=== PATIENT | female | born 1965 | race Caucasian/White ===

== ENCOUNTER 2019-06-05 21:10 | Observation (INO) | payer MEDICAID, SELFPAY ==
[2019-06-05 21:10] VITALS: BP 123/81; PULSE 91; RESP 18; TEMP 36.7; O2SAT 93
[2019-06-05 21:45] VITALS: BMI 30.4
[2019-06-05] MEDS: ondansetron 2 mg/ML SDV 2 mL 4 MG IVP (22:08)
--- NOTE | 2019-06-05 22:14 | PM.HP ---
Providers/Chief Complaint Admitting Physician: Mik Trevino MD Primary Care Provider: Mikie Neely MD Chief Complaint: flu a pos pneumonia History of Present Illness Jina Tyler is a 54 year old female with history of IBS, dyslipidemia presented with chief complaint of 3-day history of body aches and myalgias. She went to [facility] where she was diagnosed with influenza A, she was hypoxic 89 to 90% and then did well on 2 L nasal cannula. She was transferred to our facility on request of the family. Patient's chart was reviewed which showed chest x-ray which was unremarkable no CBC BMP was noted. On arrival patient was saturating well on room air, afebrile, she was complaining of extreme lethargy and myalgia. 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 She has not spiked any fever, she is denying any dysuria, traveling outside [facility], she does not get influenza vaccination. No sputum production, she is a non-smoker, nonalcoholic. Review of Systems Const: Reports: chills, body aches, fatigue and malaise; Denies: fever, change in appetite or diaphoresis Eyes: Reports: increased production of tears; Denies: change in vision ENMT: Denies: throat pain or painful swallowing Card: Denies: chest pain or edema Resp: Reports: non-productive cough; Denies: shortness of breath, productive cough, wheezing, stridor or change in phlegm color GI: Denies: abdominal pain, nausea, vomiting or coffee grounds in vomit : Denies: flank pain, difficulty urinating, urinary frequency or urinary urgency Musc: Denies: neck pain, back pain or extremity swelling Skin/Breast: Denies: rash, itching or skin pain Neuro: Reports: headache, weakness in extremities and difficulty walking; Denies: numbness in extremities, changes in sensation, lack of coordination, frequent falls, dizziness, confusion, behavioral changes, slurred speech or seizure-like activity Psych: Denies: anxiety or depression Endo: Denies: excessive urination Sacha/Lymph: Denies: easy bruising All/Imm: Denies: hives Medications/Allergies Home Medications Medication Instructions Recorded Confirmed Last Taken Type Prilosec 06/05/19 Unknown History Allergies Allergy/AdvReac Type Severity Reaction Status Date / Time codeine Allergy ADR-Nausea Verified 06/05/19 21:50 Penicillins Allergy Unknown Verified 06/05/19 21:50 PFSH Acute PFSH: Medical History (Updated 06/05/19 @ 22:19 by Erika Tran MD) Dyslipidemia IBS (irritable colon syndrome) Surgical History (Updated 06/05/19 @ 22:17 by Erika Tran MD) H/O: hysterectomy Family History (Updated 06/05/19 @ 22:17 by Erika Tran MD) Denies family history of CAD (coronary artery disease) Clotting disorder Chronic kidney disease (CKD) Cancer Social History (Updated 06/05/19 @ 22:18 by Erika Tran MD) Smoking and tobacco status: never smoked Alcohol intake: never Substance/Drug Use: never Household members: family Housing: House Marital status: Vitals/I&O/Wt 06/05/19 06/05/19 06/05/19 06:59 14:59 22:59 Intake Total 60 / 60 Balance 60 / 60 Weight last 48 hrs Weight 80.513 kg Physical Exam Narrative: EXAM NARRATIVE: Patient seems to be in distress because of myalgia He seems very lethargic and dehydrated S1, S2 She is afebrile, saturating well on room air no active respiratory distress Lung auscultation is not revealing any adventitious sounds bilateral good adequate breath sounds Abdomen soft nontender nondistended bowel sounds present Neurologically nonfocal exam Skin does not show any skin ischemia gangrene ulcer Appropriate mood and affect A&P Assessment and plan (1) Myalgia: Status: Acute Code(s): M79.10 - Myalgia, unspecified site (2) Influenza A: Status: Acute Code(s): J10.1 - Influenza due to other identified influenza virus with other respiratory manifestations Additional A&P Information Myalgias secondary to influenza A Currently hemodynamically stable, received 1 L D5 half-normal saline fluid Chest x-ray did not reveal any signs of post viral bacterial pneumonia Start Tamiflu Patient is not septic We will check CBC BMP and lactic acid and CPK Patient is not hypoxic, closely monitor for any signs of respiratory distress Family counseled on hand hygiene, washing hands, using facemask, importance of flu vaccination and avoidance of bringing children to the hospital Droplet precautions We had lengthy discussion regarding prevention, treatment, post viral complications and vigilance of influenza A, all questions were answered to the satisfaction of the family IBS: Patient is stating that she takes a powder which she is not aware of which helps with her IBS symptoms Full code Regular diet Zofran for nausea Attestations Medical Necessity Statement*: Anticipating discharge in less than 48 hours if her symptoms are improved Time Spent in Patient Care: 40 Coding Level of Care Code Acute Electrical Technology Instructor for Laurie Fwlissette Diagnoses Myalgia M79.10 Influenza A J10.1
[2019-06-05 22:46] LABS: Lactic Acid level (Lactate) 1.6 mmol/L (0.5-2.2)
[2019-06-06 00:31] VITALS: BP 125/73; PULSE 83; RESP 18; TEMP 36.8; O2SAT 92
[2019-06-06 04:03] VITALS: BP 125/82; PULSE 79; RESP 15; TEMP 37.4; O2SAT 91
[2019-06-06 05:47] LABS: Basophils % 0.3 %; Eosinophils % 0.1 %; Hematocrit 38.3 % (37.0-47.0); Hemoglobin 12.6 g/dL (11.5-15.3); Lymphocytes # 1.8 10^3/uL (0.8-4.8); Lymphocytes % 25.5 %; Mean Corpuscular HGB Conc 32.9 g/dL (30.0-36.0); Mean Corpuscular Volume 85.1 fL (81-99); Mean Platelet Volume 10.4 fL (7.4-10.4); Monocytes % 13.7 %; Neutrophils # 4.2 10^3/uL (1.8-7.7); Neutrophils % 60.3 %; Nucleated Red Blood Cells % 0 %; Platelet Count 239 10^3/cmm (130-400); Red Cell Distribution Width 13.2 % (12.1-15.1)
[2019-06-06 06:18] LABS: Anion Gap 18.8 (5-19); Blood Urea Nitrogen 9 mg/dL (6-20); Calcium 9.6 mg/dL (8.5-10.5); Carbon Dioxide 24 mmol/L (22-29); Chloride 100 mmol/L (98-107); Creatine Phosphokinase 41 U/L (26-192); Glomerular Filtration Rate 103.4 mL/min (90-130); Glucose 158 mg/dL (65-115); Osmolality Calculated 287 mOsm/kg (285-295); Potassium 3.8 mmol/L (3.5-5.1); Sodium 139 mmol/L (136-145)
[2019-06-06 07:49] VITALS: BP 140/85; PULSE 81; RESP 18; TEMP 37.1; O2SAT 94
[2019-06-06] MEDS: oseltamivir phosphate 75 mg Capsule PO (09:07)
[2019-06-06] MEDS: enoxaparin 40 mg/0.4 mL Syringe SUBCUT (09:07)
[2019-06-06] MEDS: ondansetron 2 mg/ML SDV 2 mL 4 MG IVP (09:07)
--- NOTE | 2019-06-06 11:04 | P.DS_ITS ---
Discharge Providers Date of Admission: 06/05/19 21:10 Date of Discharge: June 06, 2019 Attending Provider at Admission: Mik Trevino MD Attending Provider at Discharge: Mik Trevino MD Primary Care Provider: Mikie Neely MD Diagnoses at Discharge Discharge Diagnosis (1) Myalgia: Status: Acute (2) Influenza A: Status: Acute Reason for Visit Reason for Visit: Reason For Visit: flu a pos pneumonia Hospital Course Discharge Summary: tammi Tyler is a 54 year old female with history of IBS, dyslipidemia presented with chief complaint of 3-day history of body aches and myalgias. She went to [facility] where she was diagnosed with influenza A, she was hypoxic 89 to 90% and then did well on 2 L nasal cannula. She was transferred to our facility on request of the family. Patient's chart was reviewed which showed chest x-ray which was unremarkable no CBC BMP was noted. On arrival patient was saturating well on room air, afebrile, she was complaining of extreme lethargy and myalgia. 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 She has not spiked any fever, she is denying any dysuria, traveling outside [place], she does not get influenza vaccination. No sputum production, she is a non-smoker, nonalcoholic. She was on admitted under observation for influenza A. Patient did not have any episode of desaturation while on resting or on ambulation. Patient was started on Tamiflu which he tolerated well. Patient is complaining of mild nausea and decreased appetite for which she has been told to take bland diet for next 4 to 5 days and then advance as required. Patient is instructed to take Tamiflu for overall 5 days and finish a course along with a course of levofloxacin which is been given as prevention for from superimposed pneumonia. Patient is advised to wear a mask, hand hygiene. Patient is to remain off work to the time she completes her course of antiviral medication. Patient is been discharged hemodynamically stable condition saturating more than 94% on room air. Physical Exam Narrative: EXAM NARRATIVE: General: No acute distress, AO x3 HEENT: PERRLA, pupils bilaterally equal and reactive Chest: Normal vesicular breath sounds, no added sounds, equal good air entry bilaterally CVS: S1-S2 regular, no murmurs, no tachycardia, no gallops, no rubs Abdomen: Soft, nontender, no organomegaly, bowel sounds present Neuro: No focal deficits, no facial deformity, AO x3, power 5/5 in all limbs Discharge Data Data Completed and Pending: Labs from last 24 hours 06/06/19 06/06/19 06/06/19 05:03 05:03 05:03 WBC 7.0 RBC 4.50 Hgb 12.6 Hct 38.3 MCV 85.1 MCH 28.0 MCHC 32.9 RDW 13.2 Plt Count 239 MPV 10.4 Neut % (Auto) 60.3 Lymph % (Auto) 25.5 [place] % (Auto) 13.7 Eos % (Auto) 0.1 Baso % (Auto) 0.3 Neut # (Auto) 4.2 Lymph # (Auto) 1.8 [place] # (Auto) 1.0 H Eos # (Auto) 0.0 Baso # (Auto) 0.0 Nucleated RBC % (a uto) 0 Nucleated RBCs # 0.0 Sodium 139 Potassium 3.8 Chloride 100 Carbon Dioxide 24 Anion Gap 18.8 BUN 9 Creatinine 0.6 GFR Calculation 103.4 Glucose 158 H Calculated Osmolal ity 287 Lactic Acid (Sepsi s) Calcium 9.6 Creatine Kinase 41 Procalcitonin 06/05/19 06/05/19 22:25 22:25 WBC RBC Hgb Hct MCV MCH MCHC RDW Plt Count MPV Neut % (Auto) Lymph % (Auto) [place] % (Auto) Eos % (Auto) Baso % (Auto) Neut # (Auto) Lymph # (Auto) [place] # (Auto) Eos # (Auto) Baso # (Auto) Nucleated RBC % (a uto) Nucleated RBCs # Sodium Potassium Chloride Carbon Dioxide Anion Gap BUN Creatinine GFR Calculation Glucose Calculated Osmolal ity Lactic Acid (Sepsi s) 1.6 Calcium Creatine Kinase Procalcitonin 0.10 Vitals: Last Vital Signs Temp 98.8 F 06/06/19 07:49 Pulse 81 06/06/19 07:49 Resp 18 06/06/19 07:49 BP 140/85 06/06/19 07:49 Pulse Ox 94 06/06/19 07:49 Discharge Plan Discharge Patient Disposition: Home, Self-Care Condition: Stable Prescriptions: New oseltamivir 75 mg Capsule 75 mg PO BID 4 Days Qty: 8 RF: 0 levofloxacin 500 mg tablet 500 mg PO DAILY 5 Days RF: 0 Continued Prilosec 20 mg tablet 20 mg PO RF: 0 Discharge Orders: Discharge Order (Routine); Ordered 06/06/19 Ordered By: Mik Trevino Referrals: Elder Graham MD [Family Provider] - 2 weeks Discharge Diet: Advance as tolerated Discharge Activity: Resume usual activity Activity Restrictions/Additional Instructions: BLAND diet for 4-5 days. Advance as tolerated. May return to work after completion of antiviral treatment. Discharge Attestations Time Spent in Discharge Care*: greater than 30 min Specific Discharge Activities: Specific discharge activities: educating patient, educating and/or supporting family/caregiver and evaluating patient/reviewing data Status at Discharge: Cognitive status at discharge: cognitively intact , Behavioral status at discharge: cooperative , Functional status at discharge: independent ambulation Overall status at discharge: patient is back to baseline Quality Metrics Clinical Quality Measures During this hospital stay, did patient experience: None Coding Level of Care Code Acute Chemical Equipment Controller for Laurie Mckeon Diagnoses Myalgia M79.10 Influenza A J10.1
[2019-06-06 11:17] VITALS: BP 128/84; PULSE 76; RESP 18; TEMP 36.6; O2SAT 93
[2019-06-06 11:43] VITALS: BP 128/84; PULSE 76; RESP 18; TEMP 36.6; O2SAT 93
--- NOTE | 2019-06-06 12:14 | PC.CHAP ---
Pastoral Care Encounter/Spiritual Assessment Type of Contact [] Declined jumpbasting collar baster visit [] Patient/Family/Request visit [] Outpatient visit [] Follow-up visit [] Physician referral [] Code/Alert [x] Routine visit [] Staff referral [] Actively dying [] Patient sleeping [] Family support [] [] Out of room [] Palliative care [] [] Receiving care in room [] Pre-surgical visit [] Trauma [] Long length of stay [] ICU visit [] Other: Relational/Emotional Strength [x] Patient feels connected with others/family/visitors/staff [] Distress [] Loneliness/isolation [] Abandonment Spirituality of Patient [] Person of Amanda [] Attends Scientologist of their Amanda [x] Believes in Prayer [] Reads Bible or Jainism materials [] There are Spiritual issues to be addressed Banquet Pilot Interventions [x] Prayer [x] Active listening [x] Non-anxious presence [x] Spiritual/emotional support [] Crisis/trauma care [x] Spiritual counseling [] Bereavement support [] Provided bereavement packet [] Provided Bible/devotional materials [] Provided toy/stuffed animal, coloring book to patient or family member [] Provided Communion [] Anointing/[place] [] Salvation [] Completed spiritual assessment [] Other: Impact on Illness or Injury [] Angry [] Fearful [] Anxious [] Often cries [] Exhaustion [] Unable to work [] Unable to attend catholic [] Unable to walk/stand [] Unable to read [] Unable to drive [] Unable to eat/drink [] Unable to sleep [] Unable to be with family [] Patient intubated [x] Other: n/a Summary Time spent with patient 3 minutes x
== END 2019-06-06 12:35 | disposition home or self-care (01) ==
PROVIDERS: Internal Medicine; Admitting Provider Student in an Organized Health Care Education/Training Program; Family Provider Family Medicine; PCP Family Medicine; Visit Provider Student in an Organized Health Care Education/Training Program
DX: J10.1 Influenza due to other identified influenza virus with other respiratory manifestations (principal); M79.10 Myalgia, unspecified site; E78.5 Hyperlipidemia, unspecified
CPT/HCPCS: 12345; 36415; 80048; 82550; 83605; 84145; 85025; 96372; 96375; G0378; G0379; J1650; J2405

== ENCOUNTER 2022-01-07 21:07 | Emergency (ER) | payer OTHER, SELFPAY ==
[2022-01-07 21:29] VITALS: BP 166/86; PULSE 73; RESP 18; TEMP 36.7; O2SAT 99; BMI 29.8
--- NOTE | 2022-01-07 22:03 | CTR_ITS ---
PROCEDURE INFORMATION: Exam: CT Abdomen And Pelvis Without Contrast Exam date and time: 01/07/2022 10:13 PM Age: 56 years old Clinical indication: Abdominal pain; Flank; Right; Prior surgery; Surgery date: 6+ months; Surgery type: Appy, jaqueline, hysterectomy; Additional info: Abd pain TECHNIQUE: Imaging protocol: Computed tomography of the abdomen and pelvis without contrast. Radiation optimization: All CT scans at this facility use at least one of these dose optimization techniques: automated exposure control; mA and/or kV adjustment per patient size (includes targeted exams where dose is matched to clinical indication); or iterative reconstruction. COMPARISON: No relevant prior studies available. RADIATION DOSE METRICS: Total DLP (mGy-cm): 654.83 FINDINGS: Lungs: Lung bases are clear. Liver: The liver is normal. Gallbladder and bile ducts: The gallbladder is absent. There is no intrahepatic or extrahepatic bile duct dilation. Pancreas: The pancreas is unremarkable. Spleen: Splenic size is normal. There are scattered calcifications consistent with healed granulomas. Adrenal glands: The adrenal glands are unremarkable. Kidneys and ureters: The kidneys are unremarkable. No hydronephrosis or stones. No ureteral dilation. Stomach and bowel: The stomach is decompressed, preventing meaningful evaluation of wall thickness. The small bowel is nondilated. The colon is unremarkable. Appendix: The appendix is not visible. Intraperitoneal space: There is no free air or significant intraperitoneal free fluid. Vasculature: There is mild aortic atherosclerotic disease. Lymph nodes: There is no lymphadenopathy in the retroperitoneum, mesentery, pelvis or inguinal regions. Urinary bladder: The urinary bladder is unremarkable. Reproductive: The uterus is absent. There is no adnexal mass or large cyst. 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 There is mild degenerative disease in the lumbar spine. The pelvis and hips are unremarkable. Soft tissues: The abdominal wall is intact. CT/CT kidney stone [id number] IMPRESSION: 1. No acute findings. 2. Incidental findings above.
[2022-01-07 22:11] VITALS: RESP 17; O2SAT 97
--- NOTE | 2022-01-07 22:14 | PC.NURSE ---
patient taken to ct at this time.
--- NOTE | 2022-01-07 22:16 | ED_ITS ---
HPI - Abdominal Pain General: Chief Complaint: Abdominal Pain Stated Complaint: Rt Hip Pain\Vaginal Pain\N\ Time Seen by Provider: 01/07/22 22:00 Source: patient Mode of arrival: ambulatory Limitations: no limitations History of Present Illness: 56-year-old female who states has been having some right flank pain along with right lower abdominal pain over the last 4 to 5 days states ibuprofen and moxifloxacin does seem to help her pain. States today her pain got very sharp in her flank and radiates to her groin denies any difficulty urinating denies any vomiting or fever states pain seems to be worse with walking improved with rest. She rates her pain a 4 out of 10 currently Associated Symptoms: Denies chills and fever(s) Review of Systems Const: Denies: fever(s), chills, body aches or change in appetite Eyes: Denies: blurry vision or eye discomfort ENMT: Denies: throat pain or dental pain Card: Denies: chest pain Resp: Denies: dyspnea GI: Reports: abdominal pain : Reports: flank pain Musc: Denies: neck pain or back pain Skin/Breast: Denies: rash Neuro: Denies: headache(s) Psych: Denies: depression Sacha/Lymph: Denies: easy bruising All/Imm: Denies: urticaria PFSH ED PFSH: Medical History (Updated 01/07/22 @ 23:34 by Ritchie Heller MD) Dyslipidemia IBS (irritable colon syndrome) Surgical History H/O: hysterectomy Family History Denies family history of CAD (coronary artery disease) Clotting disorder Chronic kidney disease (CKD) Cancer Social History Smoking and tobacco status: never smoked Alcohol intake: never Household members: family Housing: House Marital status: Physical Exam Const: COMMON NORMALS: no acute distress, patient oriented x3 and healthy appearing HENMT: COMMON NORMALS: normocephalic and atraumatic HEAD & SCALP: normoc ephalic and atraumatic Eye: COMMON NORMALS: Equal, round and reactive pupils present and EOMs intact bilaterally PUPIL: Yes Equal, round and reactive pupils present Neck/C-Spine: COMMON NORMALS: full ROM and supple Chest: COMMONS NORMALS: normal inspection of the chest and normal palpation of entire chest wall Resp: COMMON NORMALS: normal respiratory effort, No retractions, No use of accessory muscles and clear to auscultation bilaterally AUSCULTATION: clear to auscultation bilaterally Cardio: COMMON NORMALS: regular rate, regular rhythm and No murmurs present (Cardio) RATE: regular rate RHYTHM: regular rhythm GI: COMMON NORMALS: Normal to inspection, nondistended, normoactive bowel sounds present, Soft to palpation, non-tender and no masses PALPATION: Yes Soft to palpation Extremity: COMMON NORMALS: normal to inspection and full ROM Neuro: COMMON NORMALS: patient oriented x3, moves all extremities and no focal motor deficits Psych: COMMON NORMALS: mental status grossly normal, Normal thought process present and cooperative THOUGHT PROCESS: Normal thought process present Skin: COMMON NORMALS: no rashes or lesions noted and no wounds GENERAL SKIN EXAM: no rashes or lesions noted Course Vital Signs: Vital signs: Vital Signs Temperature 98.1 F 01/07/22 21:29 Pulse Rate 79 01/07/22 23:00 Respiratory Rate 18 01/07/22 23:46 Blood Pressure 130/80 01/07/22 23:35 Pulse Oximetry 100 01/07/22 23:46 Oxygen Delivery Me thod 01/07/22 23:35 MDM - Abdominal Pain Medical Decision Making Patient presents here with abdominal pain and back pain is likely muscular in nature CT here is normal blood works normal no signs of pyelonephritis or UTI she stable for discharge follow-up with her PCP and return if worsening. Lab Data : 01/07/22 22:11 01/07/22 22:11 Labs/Radiology: Radiology Impressions Abdomen/Pelvis CT 01/07/22 22:03 IMPRESSION: 1. No acute findings. 2. Incidental findings above. Laboratory Results WBC 11.8 10^3/uL (4.0-10.0) H 01/07/22 22:11 RBC 4.19 10^6/uL (4.1-5.3) 01/07/22 22:11 Hgb 12.1 g/dL (11.5-15.3) 01/07/22 22:11 Hct 36.0 % (37.0-47.0) L 01/07/22 22:11 MCV 85.9 fl (81-99) 01/07/22 22:11 MCH 28.9 pg (28.0-34.0) 01/07/22 22:11 MCHC 33.6 g/dL (30.0-36.0) 01/07/22 22:11 RDW 13.2 % (12.1-15.1) 01/07/22 22:11 Plt Count 311 10^3/cmm (130-400) 01/07/22 22:11 MPV 10.8 fL (7.4-10.4) H 01/07/22 22:11 Neut % (Auto) 71.0 % 01/07/22 22:11 Lymph % (Auto) 19.5 % 01/07/22 22:11 [place] % (Auto) 7.1 % 01/07/22 22:11 Eos % (Auto) 1.6 % 01/07/22 22:11 Baso % (Auto) 0.5 % 01/07/22 22:11 Neut # (Auto) 8.41 10^3/uL (1.8-7.7) H 01/07/22 22:11 Lymph # (Auto) 2.3 10^3/uL (0.8-4.8) 01/07/22 22:11 [place] # (Auto) 0.8 10^3/uL (0.2-0.9) 01/07/22 22:11 Eos # (Auto) 0.2 10^3/uL (0.0-0.8) 01/07/22 22:11 Baso # (Auto) 0.1 10^3/uL (0.0-0.1) 01/07/22 22:11 Nucleated RBC % (auto) 0 % 01/07/22 22:11 Nucleated RBCs # 0.0 /100WBC 01/07/22 22:11 Sodium 141 mmol/L (136-145) 01/07/22 22:11 Potassium 4.1 mmol/L (3.5-5.1) 01/07/22 22:11 Chloride 106 mmol/L (98-107) 01/07/22 22:11 Carbon Dioxide 23 mmol/L (22-29) 01/07/22 22:11 Anion Gap 16.1 (5-19) 01/07/22 22:11 BUN 15 mg/dL (6-20) 01/07/22 22:11 Creatinine 0.6 mg/dL (0.5-0.9) 01/07/22 22:11 GFR Calculation 102.7 mL/min (90-130) 01/07/22 22:11 Glucose 167 mg/dL (65-115) H 01/07/22 22:11 Calculated Osmolality 297 mOsm/kg (285-295) H 01/07/22 22:11 Calcium 9.5 mg/dL (8.5-10.5) 01/07/22 22:11 Total Bilirubin 0.2 mg/dL (0.15-1.2) 01/07/22 22:11 AST 19 U/L (0-32) 01/07/22 22:11 ALT 20 U/L (0-33) 01/07/22 22:11 Alkaline Phosphatase 141 U/L (35-105) H 01/07/22 22:11 Total Protein 7.2 g/dL (6.6-8.7) 01/07/22 22:11 Albumin 4.7 g/dL (3.5-5.2) 01/07/22 22:11 Globulin 2.5 g/dL (1.3-4.6) 01/07/22 22:11 Lipase 37 U/L (13-60) 01/07/22 22:11 Urine Color Yellow (Yellow) 01/07/22 22:11 Urine Appearance Clear (CLEAR) 01/07/22 22:11 Urine pH 5 (5-7) 01/07/22 22:11 Ur Specific [place] 1.025 (1.005-1.030) 01/07/22 22:11 Urine Protein Neg (Negative) 01/07/22 22:11 Urine Glucose (UA) Norm (Normal) 01/07/22 22:11 Urine Ketones Negative (Negative) 01/07/22 22:11 Urine Blood Neg (Negative) 01/07/22 22:11 Urine Nitrate Negative (Negative) 01/07/22 22:11 Urine Bilirubin Neg (Negative) 01/07/22 22:11 Urine Urobilinogen Neg mg/dL (Negative) 01/07/22 22:11 Ur Leukocyte Esterase 1+ (Negative) H 01/07/22 22:11 Urine RBC 0-4 /hpf (0-2) H 01/07/22 22:11 Urine WBC 5-10 /hpf (0-5) H 01/07/22 22:11 Ur Squamous Epith Cells 0-4 /hpf (0-5) H 01/07/22 22:11 Amorphous Sediment Not Reportable 01/07/22 22:11 Urine Bacteria Trace /hpf (NONE) 01/07/22 22:11 Urine Mucus 1+ /hpf 01/07/22 22:11 Discharge Plan Discharge Patient Disposition: Home Clinical Impression: Low back pain Qualifiers: Chronicity: acute Back pain laterality: left Sciatica presence: without sciatica Qualified Code(s): M54.50 - Low back pain, unspecified Condition: Stable Prescriptions: New hydrocodone-acetaminophen 5-325 mg tablet 1 tab PO Q6H PRN (Reason: pain) Qty: 14 0RF No Action Prilosec 20 mg tablet 20 mg PO Discharge Orders: Discharge ED (Routine); Ordered 01/07/22 Ordered By: Ritchie Heller Referrals: Marcia Escalera APN [Primary Care Provider] - 1-3 days Discharge Diet: Advance as tolerated Discharge Activity: Resume usual activity Patient Instructions: Flank Pain (ED), Pain Management Stand Alone Forms: Work/School Release Coding Level of Care Code ED Music Cataloguer for Laurie Fwd Exam Comprehensive
[2022-01-07 22:18] LABS: Basophils # 0.1 10^3/uL (0.0-0.1); Basophils % 0.5 %; Eosinophils # 0.2 10^3/uL (0.0-0.8); Eosinophils % 1.6 %; Hemoglobin 12.1 g/dL (11.5-15.3); Lymphocytes # 2.3 10^3/uL (0.8-4.8); Lymphocytes % 19.5 %; Mean Corpuscular HGB Conc 33.6 g/dL (30.0-36.0); Mean Corpuscular Hemoglobin 28.9 pg (28.0-34.0); Mean Corpuscular Volume 85.9 fl (81-99); Mean Platelet Volume 10.8 fL (7.4-10.4); Monocytes # 0.8 10^3/uL (0.2-0.9); Monocytes % 7.1 %; Neutrophils # 8.41 10^3/uL (1.8-7.7); Nucleated Red Blood Cells % 0 %; Platelet Count 311 10^3/cmm (130-400); Red Blood Count 4.19 10^6/uL (4.1-5.3); Red Cell Distribution Width 13.2 % (12.1-15.1); White Blood Count 11.8 10^3/uL (4.0-10.0)
[2022-01-07 22:29] LABS: Add Urine Microscopic? YES; Bilirubin Urine Neg (Negative); Blood Urine Neg (Negative); Glucose Urine UA Norm (Normal); Ketones Urine Negative (Negative); Leukocyte Esterase Urine 1+ (Negative); Nitrate Urine Negative (Negative); Protein Urine Neg (Negative); Specific Gravity, Urine 1.025 (1.005-1.030); Urine Appearance Clear (CLEAR); Urine Color Yellow (Yellow); Urobilinogen Urine Neg (Negative); pH Urine 5 (5-7)
[2022-01-07 22:30] LABS: Add Urine Culture? No; Bacteria Urine TRACE /hpf; Mucus Urine 1+ /hpf; RBC Urine 0-4 /hpf (0-2); Squamous Epithelial Cell Urine 0-4 /hpf (0-5)
[2022-01-07] MEDS: ondansetron 2 mg/ML SDV 2 mL 4 MG IVP (22:30)
[2022-01-07] MEDS: HYDROmorphone 1 mg/mL INJ 1 mL 0.5 MG IVP (22:30)
[2022-01-07 22:33] LABS: Alanine Aminotransferase 20 U/L (0-33); Albumin Level 4.7 g/dL (3.5-5.2); Alkaline Phosphatase 141 U/L (35-105); Anion Gap 16.1 (5-19); Aspartate Amino Transferase 19 U/L (0-32); Blood Urea Nitrogen 15 mg/dL (6-20); Calcium 9.5 mg/dL (8.5-10.5); Carbon Dioxide 23 mmol/L (22-29); Chloride 106 mmol/L (98-107); Globulin 2.5 g/dL (1.3-4.6); Glomerular Filtration Rate 102.7 mL/min (90-130); Glucose 167 mg/dL (65-115); Lipase 37 U/L (13-60); Osmolality Calculated 297 mOsm/kg (285-295); Potassium 4.1 mmol/L (3.5-5.1); Sodium 141 mmol/L (136-145); Total Bilirubin 0.2 mg/dL (0.15-1.2); Total Protein 7.2 g/dL (6.6-8.7)
[2022-01-07 23:00] VITALS: BP 148/71; PULSE 79; RESP 19; O2SAT 97
[2022-01-07 23:35] VITALS: BP 130/80; RESP 17; O2SAT 95
[2022-01-07 23:46] VITALS: RESP 18; O2SAT 100
== END 2022-01-07 23:47 | disposition home or self-care (01) ==
PROVIDERS: Emergency Provider Emergency Medicine; PCP Nurse Practitioner Family
DX: M54.50 Low back pain, unspecified (principal); E78.5 Hyperlipidemia, unspecified
CPT/HCPCS: 74176; 80053; 81001; 83690; 85025; 96374; 96375; 99285; J1170; J2405

== ENCOUNTER 2022-11-18 13:10 | Emergency (ER) | payer OTHER, SELFPAY ==
[2022-11-18 13:17] VITALS: BP 155/87; PULSE 76; RESP 15; TEMP 36.8; O2SAT 98; BMI 30.9
--- NOTE | 2022-11-18 13:28 | XR_ITS ---
WS: [id number] Left foot, 3 views, 11/18/2022 Clinical Data: crush injury Comparison: None. Findings: There is a nondisplaced fracture of the base of the third toe proximal phalanx. No other fractures ar e seen. The joint spaces are normal. The soft tissues are unremarkable. There is a plantar spur. Impression: Fracture at the base of left third toe proximal phalanx.
[2022-11-18 13:49] VITALS: PULSE 72; RESP 17; O2SAT 98
--- NOTE | 2022-11-19 00:36 | W.ED.EXTPRO ---
HPI - Extremity Problem General: Chief complaint: Extremity Injury, Lower Stated complaint: left foot injury Time Seen by Provider: 11/18/22 13:19 Source: patient Mode of arrival: wheelchair Limitations: no limitations History of Present Illness: Patient presents emergency department today for evaluation treatment of left foot pain. 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 She has had pain, swelling, and bruising to the distal portion of her foot since that time. Review of Systems General: Reports: 10 or more systems reviewed and unremarkable except in HPI and below PFSH ED PFSH: Medical History Dyslipidemia IBS (irritable colon syndrome) Surgical History H/O: hysterectomy Family History Denies family history of CAD (coronary artery disease) Clotting disorder Chronic kidney disease (CKD) Cancer Social History Smoking and tobacco status: never smoked Alcohol intake: never Substance/Drug Use: never Household members: family Housing: House Marital status: Physical Exam Const: COMMON NORMALS: no acute distress, patient oriented x3 and alert HENMT: COMMON NORMALS: normocephalic, atraumatic and hearing grossly normal bilaterally HEAD & SCALP: normocephalic and atraumatic Eye: COMMON NORMALS: Equal, round and reactive pupils present, EOMs intact bilaterally and conjunctivae normal CONJUNCTIVA: Yes conjunctivae normal PUPIL: Yes Equal, round and reactive pupils present Neck/C-Spine: COMMON NORMALS: full ROM and no JVD Lymph: LYMPHATIC: no lymphadenopathy noted Resp: COMMON NORMALS: normal respiratory effort, No retractions and No use of accessory muscles Cardio: COMMON NORMALS: no JVD and regular rate RATE: regular rate Extremity: NARRATIVE EXTREMITY EXAM: Patient is ambulatory and weightbearing. She is tender to the MTP joints of the left foot as well as tender to the distal midfoot on the left side. Patient has pain with flexion extension of the toes on the left foot-especially around the third toe. Obvious swelling and bruising to the top distal portion of the foot. No open wounds or bleeding. Neuro: COMMON NORMALS: patient oriented x3 SENSORIUM/ORIENTATION: Yes alert Psych: COMMON NORMALS: mental status grossly normal, Normal thought process present, cooperative and normal affect THOUGHT PROCESS: Normal thought process present Skin: COMMON NORMALS: no rashes or lesions noted and turgor normal GENERAL SKIN EXAM: no rashes or lesions noted and turgor normal Course Vital Signs: Vital signs: Vital Signs Temperature 98.3 F 11/18/22 13:17 Pulse Rate 72 11/18/22 13:49 Respiratory Rate 17 11/18/22 13:49 Blood Pressure 155/87 11/18/22 13:17 Pulse Oximetry 98 11/18/22 13:49 Oxygen Delivery Me thod Room Air 11/18/22 13:49 MDM - Extremity (Nontraumatic) Medical Decision Making X-ray confirmed proximal phalanx fracture of the third toe on the left foot. My initial evaluation of the films I thought there may be a slight cortical irregularity of the mid portion of the fourth proximal phalanx and, a potential small nondisplaced chip to the medial, proximal phalanx of the second digit. Either way, patient needs to be nonweightbearing on the foot and orthopedic referral initiated. Originally had discussed a walking boot however, it is not available here in the emergency department so postop shoe and crutches were provided. Note for her employer given. Encouraged application of ice and elevation. Differential Diagnosis Unlikely gout, cellulitis (Likely foot contusion, distal metatarsal fracture, toe fracture, bone contusion) or deep vein thrombosis of lower extremity Discharge Plan Discharge Patient Disposition: Home Clinical Impression: Fracture of toe Condition: Stable Prescriptions: No Action cetirizine 10 mg tablet 10 mg PO DAILY gemfibrozil 600 mg tablet 600 mg PO BID iron 325 mg (65 mg iron) Tablet 325 mg PO DAILY omeprazole 20 mg capsule,delayed release(DR/EC) 20 mg PO BID hydroxychloroquine 200 mg tablet 200 mg PO BID Excedrin Extra Strength 250-250-65 mg Tablet 1 tab PO Q6H PRN (Reason: Pain) rosuvastatin 10 mg tablet 10 mg PO QPM Cholestyramine Light 4 gram powder 1 ea PO BID Women's 50 Plus Multivitamin 400 mcg-500 mg calcium-20 mcg Tablet 1 tab PO DAILY Estroven Cmplt Menopause Rlf 4 mg Tablet 4 mg PO DAILY Discharge Orders: Discharge ED (Routine); Ordered 11/18/22 Ordered By: Trini Boothe Referrals: Marcia Escalera APN [Primary Care Provider] - Discharge Diet: Usual diet Discharge Activity: Limit activity as instructed Patient Instructions: Fractures - Phalanx (Toe) Activity Restrictions/Additional Instructions: X-ray was read confirming proximal third toe fracture. However, I am suspicious for very subtle irregularities which may also be affecting the proximal ends of the second and fourth toes. Either way, we need you to follow-up with orthopedics. We are unable to obtain a walking boot through the emergency department today so I placed you in a postop shoe and crutches to help you remain nonweightbearing on your foot. Is much as possible over the next several days, keep your foot up and elevated, apply ice for 15 to 20 minutes and use Tylenol or ibuprofen as needed for pain. We have initiated the request to orthopedics on your behalf and I am giving a few days off work to make sure you are available to have your follow-up appointment scheduled to receive further work restrictions for this injury. 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
--- NOTE | 2022-11-21 07:21 | DCPLANNER ---
Addendum entered by Ita Pierre 11/30/22 13:32: Patient did attend appointment scheduled at ortho. Original Note: repair manager had message to schedule a follow up appointment for patient with ortho. repair manager sent patients information to the front office staff at ortho. Patients information will be printed and reviewed. Clinic will call patient with appointment information.
== END 2022-11-18 15:13 | disposition home or self-care (01) ==
PROVIDERS: Emergency Provider Physician Assistant; PCP Nurse Practitioner Family
DX: S92.512A Displaced fracture of proximal phalanx of left lesser toe(s), initial encounter for closed fracture (principal); W22.8XXA Striking against or struck by other objects, initial encounter
CPT/HCPCS: 73630; 99283; E0114

== ENCOUNTER → 2023-01-02 15:07 | Outpatient (BNVA) | payer OTHER, SELFPAY | PROVIDERS: PCP Nurse Practitioner Family; Visit Provider Podiatrist Foot & Ankle Surgery | DX: S92.912A Unspecified fracture of left toe(s), initial encounter for closed fracture (principal); S92.512A Displaced fracture of proximal phalanx of left lesser toe(s), initial encounter for closed fracture; W20.8XXA Other cause of strike by thrown, projected or falling object, initial encounter | CPT/HCPCS: 73630 ==

== ENCOUNTER 2024-08-02 11:40 | Emergency (ER) | payer OTHER, SELFPAY ==
[2024-08-02 11:43] VITALS: BP 135/78; PULSE 67; RESP 16; TEMP 36.8; O2SAT 99; BMI 30.2
--- NOTE | 2024-08-02 12:02 | ED_ITS ---
HPI - Dizziness 2 General: Chief Complaint: Dizziness Stated Complaint: generalized weakness Time Seen by Provider: 08/02/24 11:41 Source: patient Mode of arrival: EMS Limitations: no limitations History of Present Illness: HPI Narrative: Patient is a nice 59-year-old female presents to ED today with complaint of vertigo. Patient states around 8 AM this morning while lying in bed, she rolled over, and immediately began experiencing vertigo. Patient states symptoms have been persistent since this morning. She states she is not having symptoms at rest/if she is not moving. She is not having any concerns of slurred speech, trouble with word finding, numbness/tingling/loss of sensation, weakness, headache, etc. Denies recent illness/URI. Denies hearing loss, tinnnitus, ear pain. MD elicited complaint: dizziness Onset (ago): hour(s) Timing: sudden onset Severity: moderate Description: room spinning Context: change in body position History of similar symptoms: No Exacerbating factors: movement/ambulation and change in body position Relieving factors: remaining still Associated symptoms: Denies chest pain, chills, headache(s), malaise, nausea, palpitations, syncope or vomiting Associated neuro symptoms: Deny confusion or numbness in extremities Stroke scale total: 0 Related Data Home Medications ?Medication ?Instructions ?Recorded ?Confirmed cetirizine 10 mg tablet 10 mg PO DAILY 11/18/2205/28 cholestyramine-aspartame 4 gram 1 ea PO BID 11/18/22 0 08/02/24 oral powder (Cholestyramine Light) ferrous sulfate 325 mg (65 mg 325 mg PO DAILY 11/18/22 08/02/24 iron) tablet (iron) gemfibrozil 600 mg tablet 600 mg PO BID 11/18/2208/02 hydroxychloroquine 200 mg tablet 200 mg PO BID 3 08/02/24 [id number]-[id number] ac 400 1 tab PO DAILY 11/18/2205/28 mcg-calcium carb 500 mg-vit K1 20 mcg tablet (Women's 50 Plus Multivitamin) omeprazole 20 mg capsule,delayed 20 mg PO BID 11/18/22 08/02/24 release rosuvastatin 10 mg tablet 10 mg PO QPM 11/18/22 cyclobenzaprine 10 mg tablet 10 mg PO BID 08/02/2405/28 escitalopram oxalate 10 mg tablet 10 mg PO DAILY 08/0208/02/24 metformin 500 mg tablet 500 mg PO BID 08/02/2408/02 Previous Rx's ?Medication ?Instructions ?Recorded meclizine 50 mg tablet 50 mg PO Q8H PRN dizziness # 14 tabs 08/02/24 ondansetron 4 mg disintegrating 4 mg PO Q8H PRN nausea and 08/02/24 tablet vomiting #14 tabs Allergies Allergy/AdvReac Type Severity Reaction Status Date / Time codeine Allergy ADR-Nausea Verified 01/02/23 15:21 Penicillins Allergy Unknown Verified 01/02/23 15:21 Review of Systems 2 Const: Denies: fever(s), chills, body aches, fatigue or malaise Eyes: Denies: change in vision, blurry vision, photophobia or seeing flashes Card: Denies: chest pain, palpitations, irregular heart rhythm, lightheadedness, syncope or dyspnea on exertion Resp: Denies: dyspnea, productive cough or pain on inspiration GI: Denies: abdominal pain, nausea, vomiting, heartburn or diarrhea : Denies: flank pain or dysuria Musc: Denies: neck pain, back pain, extremity pain, extremity swelling or joint pain Skin/Breast: Denies: rash Neuro: Reports: vertigo; Denies: headache(s), numbness in extremities, weakness in extremities, sensory changes, lack of coordination, frequent falls, confusion, behavioral changes, Slurred speech present, difficulty communicating thoughts or seizure-like activity PFSH ED 2 PFSH: Medical History Dyslipidemia IBS (irritable colon syndrome) Surgical History H/O: hysterectomy Family History Denies family history of CAD (coronary artery disease) Clotting disorder Chronic kidney disease (CKD) Cancer Social History Smoking and tobacco/nicotine status: never used tobacco/nicotine Alcohol intake: never Substance/Drug Use: never Household members: family Housing: House Marital status: Physical Exam 2 Const: COMMON NORMALS: no acute distress, average body habitus, patient oriented x3, no limitations, healthy appearing, alert and well nourished G ENERAL APPEARANCE: cooperative ORIENTATION/CONSCIOUSNESS: Yes awake, Yes oriented to person, Yes oriented to place and Yes oriented to time HENMT: COMMON NORMALS: normocephalic and atraumatic HEAD & SCALP: normal to inspection, normocephalic and atraumatic FACE & SINUS: normal facial exam and face symmetric Eye: COMMON NORMALS: Equal, round and reactive pupils present and EOMs intact bilaterally GENERAL EYE: appearance normal, both eyes and all related structures and normal light reflex PUPIL: Yes Equal, round and reactive pupils present DIRECT OPHTHALMOSCOPY: Yes normal light reflex OTHER: no direction changing nystagmus noted; absent skew Neck/C-Spine: COMMON NORMALS: full ROM, no lymphadenopathy, supple and no meningeal signs Chest: COMMONS NORMALS: normal inspection of the chest Resp: COMMON NORMALS: normal respiratory effort and clear to auscultation bilaterally AUSCULTATION: clear to auscultation bilaterally Cardio: COMMON NORMALS: regular rate and regular rhythm RATE: regular rate RHYTHM: regular rhythm GI: COMMON NORMALS: Normal to inspection, nondistended, normoactive bowel sounds present, Soft to palpation, non-tender, No hepatosplenomegaly present and no masses PALPATION: Yes Soft to palpation and Yes No hepatosplenomegaly present : COMMON NORMALS: Yes no CVA tenderness BLADDER/KIDNEY EXAM: Yes no CVA tenderness Back/Pelvis: COMMON NORMALS: no CVA tenderness and thoracic and lumbar spine normal to inspection Extremity: COMMON NORMALS: normal to inspection GENERAL: Yes normal exam except as noted Neuro: EZRA COMA SCALE: document GCS findings Ezra coma scale eye opening: Spontaneous Ezra coma scale verbal response: Orientated [place] coma scale motor response: Obey commands [place] coma scale total score: 15 COMMON NORMALS: patient oriented x3, CN's II-XII intact bilaterally, moves all extremities, no focal motor deficits and no sensory deficits noted S ENSORIUM/ORIENTATION: Yes alert, Yes oriented to person, Yes oriented to place and Yes oriented to time MENINGEAL SIGNS: Yes no meningeal signs C OORDINATION/BALANCE: [id number] test normal SPEECH: speech normal M OTOR EXAM: 5/5 motor strength present throughout COORDINATION: [id number]-ur-lwaw test normal Skin: COMMON NORMALS: no rashes or lesions noted GENERAL SKIN EXAM: no rashes or lesions noted Course 2 Vital Signs: Vital signs: Vital Signs Temperature 98.2 F 08/02/24 11:43 Pulse Rate 80 08/02/24 13:37 Respiratory Rate 18 08/02/24 13:37 Blood Pressure 147/85 08/02/24 13:37 Pulse Oximetry 97 08/02/24 13:37 Oxygen Delivery Me thod Room Air 08/02/24 11:43 MDM - Dizziness Medical Decision Making Patient here for acute onset vertigo after rolling over in bed this morning. No neurologic symptoms to suggest central etiology. She has no symptoms at rest/vertigo is reproducible with movement. [place] reproduced symptoms mainly on the left and overall clinical picture is most consistent with BPPV. Less likely M?ni?re's, labyrinthitis, vestibular neuronitis, etc. She will be treated with meclizine and given instructions for Constantine carvajal at home. Discussed vestibular rehabilitation if symptoms do not improve. Return to ED precautions discussed. Differential Diagnosis Likely benign paroxysmal positional vertigo Medical Records I reviewed the patient's medical records. Lab Data I reviewed the patient's lab results. 08/02/24 12:37 08/02/24 12:37 Laboratory Results WBC 7.44 10^3/uL (3.29-11.43) 08/02/24 12:37 RBC 4.76 10^6/uL (3.85-5.65) 08/02/24 12:37 Hgb 13.30 g/dL (11.27-16.99) 08/02/24 12:37 Hct 40.3 % (36-47) 08/02/24 12:37 MCV 84.7 fl (85-98) L 08/02/24 12:37 MCH 27.9 pg (27-33) 08/02/24 12:37 MCHC 33.0 g/dL (30-55) 08/02/24 12:37 RDW 12.5 % (12.1-15.1) 08/02/24 12:37 Plt Count 290 10^3/cmm (157-399) 08/02/24 12:37 MPV 10.4 fL (7.4-10.4) 08/02/24 12:37 Neut % (Auto) 71.2 % 08/02/24 12:37 Lymph % (Auto) 21.6 % 08/02/24 12:37 [place] % (Auto) 5.8 % 08/02/24 12:37 Eos % (Auto) 0.7 % 08/02/24 12:37 Baso % (Auto) 0.4 % 08/02/24 12:37 Neut # (Auto) 5.30 10^3/uL (1.8-7.7) 08/02/24 12:37 Lymph # (Auto) 1.6 10^3/uL (0.8-4.8) 08/02/24 12:37 [place] # (Auto) 0.4 10^3/uL (0.2-0.9) 08/02/24 12:37 Eos # (Auto) 0.1 10^3/uL (0.0-0.8) 08/02/24 12:37 Baso # (Auto) 0.0 10^3/uL (0.0-0.1) 08/02/24 12:37 Nucleated RBC % (auto) 0 % 08/02/24 12:37 Nucleated RBCs # 0.0 /100WBC 08/02/24 12:37 Sodium 140 mmol/L (136-145) 08/02/24 12:37 Potassium 4.1 mmol/L (3.5-5.1) 08/02/24 12:37 Chloride 103 mmol/L (98-107) 08/02/24 12:37 Carbon Dioxide 24 mmol/L (22-29) 08/02/24 12:37 Anion Gap 17.1 (5-19) 08/02/24 12:37 BUN 12 mg/dL (8-23) 08/02/24 12:37 Creatinine 0.7 mg/dL (0.5-0.9) 08/02/24 12:37 GFR Calculation 85.1 mL/min (90-130) L 08/02/24 12:37 Glucose 113 mg/dL (65-115) 08/02/24 12:37 Calculated Osmolality 291 mOsm/kg (285-295) 08/02/24 12:37 Calcium 9.6 mg/dL (8.5-10.5) 08/02/24 12:37 Total Bilirubin 0.3 mg/dL (0.15-1.2) 08/02/24 12:37 AST 15 U/L (0-32) 08/02/24 12:37 ALT 18 U/L (0-33) 08/02/24 12:37 Alkaline Phosphatase 113 U/L (35-105) H 08/02/24 12:37 Total Protein 7.1 g/dL (6.6-8.7) 08/02/24 12:37 Albumin 4.5 g/dL (3.5-5.2) 08/02/24 12:37 Globulin 2.6 g/dL (1.3-4.6) 08/02/24 12:37 No radiology studies performed this visit Discharge Plan Discharge Patient Disposition: Home Clinical Impression: Vertigo Condition: Stable Prescriptions: New meclizine 50 mg tablet 50 mg PO Q8H PRN (Reason: dizziness) Qty: 14 0RF ondansetron 4 mg tablet,disintegrating 4 mg PO Q8H PRN (Reason: nausea and vomiting) Qty: 14 0RF No Action cetirizine 10 mg tablet 10 mg PO DAILY gemfibrozil 600 mg tablet 600 mg PO BID ferrous sulfate [iron] 325 mg (65 mg iron) Tablet 325 mg PO DAILY omeprazole 20 mg capsule,delayed release(DR/EC) 20 mg PO BID hydroxychloroquine 200 mg tablet 200 mg PO BID rosuvastatin 10 mg tablet 10 mg PO QPM Cholestyramine Light 4 gram powder 1 ea PO BID Women's 50 Plus Multivitamin 400 mcg-500 mg calcium-20 mcg Tablet 1 tab PO DAILY cyclobenzaprine 10 mg tablet 10 mg PO BID metformin 500 mg tablet 500 mg PO BID escitalopram oxalate 10 mg tablet 10 mg PO DAILY Discharge Orders: Discharge ED (Routine); Ordered 08/02/24 Ordered By: Daniella Rueda Referrals: Marcia Escalera APN [Primary Care Provider, Nurse Practitioner] Patient Instructions: Vertigo (DC), Benign Paroxysmal Positional Vertigo (DC), Dizziness (ED) Activity Restrictions/Additional Instructions: As we discussed, you were given a handout to try to help with your vertigo at home. You may also use the meclizine and zofran as needed. Please reach out to your primary care provider next week as some patients may require vestibular rehabilitation by physical therapy to help with vertigo. You need to return to the emergency department for onset of trouble swallowing, focal weakness or loss of sensation, trouble speaking or slurred speech, significant impairment with gait, double vision, or any other concerns you may have. 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
[2024-08-02 12:41] LABS: Basophils % 0.4 %; Eosinophils # 0.1 10^3/uL (0.0-0.8); Eosinophils % 0.7 %; Hematocrit 40.3 % (36-47); Lymphocytes # 1.6 10^3/uL (0.8-4.8); Lymphocytes % 21.6 %; Mean Corpuscular Hemoglobin 27.9 pg (27-33); Mean Corpuscular Volume 84.7 fl (85-98); Mean Platelet Volume 10.4 fL (7.4-10.4); Monocytes # 0.4 10^3/uL (0.2-0.9); Monocytes % 5.8 %; Neutrophils % 71.2 %; Nucleated Red Blood Cells % 0 %; Platelet Count 290 10^3/cmm (157-399); Red Blood Count 4.76 10^6/uL (3.85-5.65); Red Cell Distribution Width 12.5 % (12.1-15.1); White Blood Count 7.44 10^3/uL (3.29-11.43)
[2024-08-02] MEDS: sodium chloride 0.9% 1,000 ML 999 ML IV (12:43)
[2024-08-02] MEDS: meclizine 25 mg tablet 50 MG PO (12:45)
[2024-08-02 12:58] LABS: Alanine Aminotransferase 18 U/L (0-33); Albumin Level 4.5 g/dL (3.5-5.2); Alkaline Phosphatase 113 U/L (35-105); Anion Gap 17.1 (5-19); Aspartate Amino Transferase 15 U/L (0-32); Blood Urea Nitrogen 12 mg/dL (8-23); Calcium 9.6 mg/dL (8.5-10.5); Carbon Dioxide 24 mmol/L (22-29); Chloride 103 mmol/L (98-107); Creatinine Clr Calc Pharmacy 86.2728; Globulin 2.6 g/dL (1.3-4.6); Glomerular Filtration Rate 85.1 mL/min (90-130); Glucose 113 mg/dL (65-115); Osmolality Calculated 291 mOsm/kg (285-295); Potassium 4.1 mmol/L (3.5-5.1); Sodium 140 mmol/L (136-145); Total Bilirubin 0.3 mg/dL (0.15-1.2); Total Protein 7.1 g/dL (6.6-8.7)
--- NOTE | 2024-08-02 13:24 | PC.PHAR ---
Pt brought her rx bottles with her and verified her Cholestyramine light (not present) along with her otc's.
[2024-08-02 13:37] VITALS: BP 147/85; PULSE 80; RESP 18; O2SAT 97
[2024-08-02 14:46] VITALS: BP 141/78; PULSE 73; RESP 16; O2SAT 97
== END 2024-08-02 14:46 | disposition home or self-care (01) ==
PROVIDERS: Emergency Provider Physician Assistant; PCP Nurse Practitioner Family
DX: R42 Dizziness and giddiness (principal); Z79.84 Long term (current) use of oral hypoglycemic drugs; E78.5 Hyperlipidemia, unspecified
CPT/HCPCS: 36415; 80053; 85025; 96360; 99284; J7030; J8597